=== PATIENT | male | born 1960 | race Caucasian/White ===

== ENCOUNTER 2016-11-30 15:37 | Emergency (ER) | payer MEDICARE, MEDICAID ==
[2016-11-30 16:27] LABS: EOSINOPHILS 1.4 % (0-7); HEMATOCRIT 50.6 % (42.0-54.0); HEMOGLOBIN 16.8 g/dL (13.5-17.5); IMMATURE GRANULOCYTES 0.1 % (0-5); MCH 32.4 pg (26.0-34.0); MCHC 33.2 g/dL (31.0-37.0); MCV 97.7 fL (80.0-100.0); MEAN PLATELET VOLUME 9.7 fL (7.4-10.4); MONOCYTES 8.5 % (2-11); PLATELET COUNT 206 10x3/uL (130-400); RBC 5.18 10x6/uL (4.20-6.10); RDW 13.3 % (11.5-14.5); WBC 7.2 10x3/uL (4.8-10.8)
[2016-11-30 16:42] LABS: ALBUMIN 3.9 g/dL (3.4-5.0); ALKALINE PHOSPHATASE 75 U/L (46-116); ALT (SGPT) 34 U/L (10-68); BILIRUBIN - TOTAL 0.66 mg/dL (0.2-1.3); CALC OSMOLALITY 278 mosm/kg (275-300); CALCIUM 9.1 mg/dL (8.5-10.1); CARBON DIOXIDE 24.5 mmol/L (21.0-32.0); CHLORIDE - SERUM 102 mmol/L (98-107); CREATININE - SERUM 0.8 mg/dL (0.6-1.3); GLUCOSE 108 mg/dL (74-106); POTASSIUM - SERUM 3.8 mmol/L (3.5-5.1); PROTEIN - SERUM 7.6 g/dL (6.4-8.2); SODIUM 139 mmol/L (136-145); UREA NITROGEN 13 mg/dL (7-18); eGFR NON AFRICAN AMERICAN > 90 mL/min (90-120)
[2016-11-30 18:54] LABS: APPEARANCE CLEAR (CLEAR); BILIRUBIN NEGATIVE (NEGATIVE); COLOR DK YELLOW (YELLOW); GLUCOSE NEGATIVE (NEGATIVE); KETONE SMALL mg/dL (NEGATIVE); LEUKOCYTE ESTERASE NEGATIVE (NEGATIVE); NITRITE NEGATIVE (NEGATIVE); PROTEIN NEGATIVE (NEGATIVE); UROBILINOGEN NORMAL (NORMAL)
[2016-11-30 19:03] LABS: UDS - AMPHET POSITIVE QUAL (NEGATIVE); UDS - BARB POSITIVE QUAL (NEGATIVE); UDS - BENZO POSITIVE QUAL (NEGATIVE); UDS - COCAINE NEGATIVE QUAL (NEGATIVE); UDS - METH NEGATIVE QUAL (NEGATIVE); UDS - OPIATE NEGATIVE QUAL (NEGATIVE); UDS - PCP NEGATIVE QUAL (NEGATIVE); UDS - THC NEGATIVE QUAL (NEGATIVE)
== END 2016-12-01 03:15 | disposition other institution (70) ==
LOC: D.ER 15:37
PROVIDERS: Emergency Medicine
DX: R45.851 Suicidal ideations (principal); F23 Brief psychotic disorder; F41.9 Anxiety disorder, unspecified; Z87.891 Personal history of nicotine dependence

== ENCOUNTER 2017-10-03 22:12 | Emergency (ER) | payer MEDICARE ==
[2017-10-03 22:43] LABS: BASOPHILS 1.1 % (0-2); EOSINOPHILS 1.6 % (0-7); HEMATOCRIT 48.7 % (42.0-54.0); HEMOGLOBIN 17.4 g/dL (13.5-17.5); IMMATURE GRANULOCYTES 0.1 % (0-5); LYMPHOCYTES 49.8 % (15-50); MCH 33.1 pg (26.0-34.0); MCHC 35.7 g/dL (31.0-37.0); MCV 92.6 fL (80.0-100.0); MEAN PLATELET VOLUME 9.4 fL (7.4-10.4); MONOCYTES 6.6 % (2-11); NEUTROPHILS 40.8 % (40-80); PLATELET COUNT 185 10x3/uL (130-400); RBC 5.26 10x6/uL (4.20-6.10); RDW 13.2 % (11.5-14.5)
[2017-10-03 22:54] LABS: ALBUMIN 4.1 g/dL (3.4-5.0); ANION GAP 17.2 mmol/L (8-16); BILIRUBIN - TOTAL 0.57 mg/dL (0.2-1.3); CALCIUM 8.4 mg/dL (8.5-10.1); CARBON DIOXIDE 27.6 mmol/L (21.0-32.0); CREATININE - SERUM 1.2 mg/dL (0.6-1.3); POTASSIUM - SERUM 3.8 mmol/L (3.5-5.1); PROTEIN - SERUM 7.8 g/dL (6.4-8.2)
[2017-10-03 23:36] LABS: APPEARANCE CLEAR (CLEAR); COLOR YELLOW (YELLOW); SPECIFIC GRAVITY 1.015 (1.005-1.020)
[2017-10-03 23:37] LABS: BILIRUBIN NEGATIVE (NEGATIVE); GLUCOSE NEGATIVE (NEGATIVE); KETONE NEGATIVE (NEGATIVE); NITRITE NEGATIVE (NEGATIVE); PROTEIN NEGATIVE (NEGATIVE); UROBILINOGEN NORMAL (NORMAL)
[2017-10-03 23:47] LABS: UDS - AMPHET NEGATIVE QUAL (NEGATIVE); UDS - BARB NEGATIVE QUAL (NEGATIVE); UDS - BENZO NEGATIVE QUAL (NEGATIVE); UDS - COCAINE NEGATIVE QUAL (NEGATIVE); UDS - OPIATE NEGATIVE QUAL (NEGATIVE); UDS - PCP NEGATIVE QUAL (NEGATIVE); UDS - THC NEGATIVE QUAL (NEGATIVE)
== END 2017-10-04 12:14 ==
LOC: D.ER 22:12
PROVIDERS: Emergency Medicine
DX: F32.9 Major depressive disorder, single episode, unspecified (principal); F10.10 Alcohol abuse, uncomplicated; R45.851 Suicidal ideations; F17.200 Nicotine dependence, unspecified, uncomplicated

== ENCOUNTER 2018-03-11 20:31 | Emergency (ER) | payer MEDICARE ==
[~2018-03-11] VITALS: Ht 190.5 cm; Wt 109.1 kg
[2018-03-11 20:42] VITALS: BP 113/79; Ht 190.5 cm; Wt 109.1 kg
[2018-03-11] MEDS ORDERED: KLONOPIN1 MG PO (20:44)
[2018-03-11] MEDS ORDERED: NEURONTIN600 MG PO (20:44)
[2018-03-11] MEDS ORDERED: SEROQUEL400 MG PO (20:44)
[2018-03-11 21:02] LABS: APPEARANCE CLEAR (CLEAR); BILIRUBIN NEGATIVE (NEGATIVE); COLOR YELLOW (YELLOW); GLUCOSE NEGATIVE (NEGATIVE); KETONE NEGATIVE (NEGATIVE); NITRITE NEGATIVE (NEGATIVE); PROTEIN NEGATIVE (NEGATIVE); SPECIFIC GRAVITY 1.015 (1.005-1.020); UROBILINOGEN NORMAL (NORMAL)
== END 2018-03-11 22:03 | disposition left against medical advice (07) ==
LOC: D.ER 20:31
PROVIDERS: Emergency Medicine
DX: R10.9 Unspecified abdominal pain (principal); R11.0 Nausea

== ENCOUNTER 2018-06-14 15:11 | Emergency (ER) | payer MEDICARE ==
[~2018-06-14 15:11] MED LIST: KLONOPIN1 MG PO; NEURONTIN600 MG PO; SEROQUEL400 MG PO
== END 2018-06-14 15:50 | disposition left against medical advice (07) ==
LOC: D.ER 15:11
DX: K85.90 Acute pancreatitis without necrosis or infection, unspecified (principal)

== ENCOUNTER 2019-07-05 17:03 | Inpatient (IN) | payer MEDICARE ==
[~2019-07-05] VITALS: Ht 190.5 cm; Wt 90.9 kg
[2019-07-05 00:30] VITALS: BP 114/75
--- NOTE | 2019-07-05 17:21 | NUR ---
FSBS= 119 MG/DL
[2019-07-05 17:39] VITALS: BP 125/88
[2019-07-05 17:55] LABS: BASOPHILS 0.6 % (0-2); EOSINOPHILS 2.6 % (0-7); HEMOGLOBIN 17.4 g/dL (13.5-17.5); IMMATURE GRANULOCYTES 0.2 % (0-5); LYMPHOCYTES 39.3 % (15-50); MCH 34.5 pg (26.0-34.0); MCHC 36.3 g/dL (31.0-37.0); MEAN PLATELET VOLUME 10.2 fL (7.4-10.4); MONOCYTES 10.9 % (2-11); NEUTROPHILS 46.4 % (40-80); PLATELET COUNT 174 10x3/uL (130-400); RBC 5.05 10x6/uL (4.20-6.10); RDW 12.7 % (11.5-14.5); WBC 5.1 10x3/uL (4.8-10.8)
[2019-07-05 18:08] LABS: INR 1.05 (0.85-1.17); PROTIME 13.6 SECONDS (11.6-15.0)
[2019-07-05 18:09] LABS: APTT 30.2 SECONDS (22.8-39.4)
--- NOTE | 2019-07-05 18:17 | NUR ---
PT STATES LAST ETOH INTAKE NOON VODKA AND OJ, "2 GLASSES" AND DRANK ETOH ALL NIGHT IN [place], VODKA AND OJ. PT LAST TOOK METH 0300 THIS AM.
[2019-07-05 18:20] VITALS: BP 103/75
--- NOTE | 2019-07-05 18:20 | NUR ---
NITRO NOT GIVEN D/T BP 103/75.
[2019-07-05 18:41] LABS: ALBUMIN 3.7 g/dL (3.4-5.0); ALKALINE PHOSPHATASE 67 U/L (46-116); ALT (SGPT) 113 U/L (10-68); BILIRUBIN - TOTAL 1.26 mg/dL (0.2-1.3); CARBON DIOXIDE 23.5 mmol/L (21.0-32.0); CHLORIDE - SERUM 100 mmol/L (98-107); CKMB 0.3 U/L (0.0-3.6); CREATINE KINASE 140 UL (21-232); MAGNESIUM - SERUM 1.9 mg/dL (1.8-2.4); PROTEIN - SERUM 7.9 g/dL (6.4-8.2); SODIUM 137 mmol/L (136-145); UREA NITROGEN 7 mg/dL (7-18)
[2019-07-05 18:48] LABS: CALC OSMOLALITY 272 mosm/kg (275-300); CALCIUM 9.5 mg/dL (8.5-10.1); CREATININE - SERUM 0.7 mg/dL (0.6-1.3); GLUCOSE 125 mg/dL (74-106); TROPONIN-I < 0.017 ng/mL (0.000-0.060); eGFR NON AFRICAN AMERICAN > 90 mL/min (90-120)
--- NOTE | 2019-07-05 21:18 | NUR ---
CORRECTION: PT REPORT CALLED TO [facility] AND TRANSPORTED VIA [facility].
[2019-07-05] MEDS ORDERED: INDERAL 40 MG T40 MG PO (22:09)
[2019-07-05 22:38] VITALS: BP 137/85; BMI 25.0
--- NOTE | 2019-07-06 02:35 | NUR ---
PATIENT RESTING COMFORTABLY. RESPIRATIONS ARE EVEN AND UNLABORED. NO S/S OF DISTRESS. CALL LIGHT WITHIN REACH
[2019-07-06 06:36] LABS: EOSINOPHILS 4.1 % (0-7); HEMATOCRIT 45.2 % (42.0-54.0); LYMPHOCYTES 39.8 % (15-50); MCH 34.1 pg (26.0-34.0); MCHC 35.4 g/dL (31.0-37.0); MCV 96.4 fL (80.0-100.0); MEAN PLATELET VOLUME 9.7 fL (7.4-10.4); MONOCYTES 11.9 % (2-11); NEUTROPHILS 43.2 % (40-80); PLATELET COUNT 145 10x3/uL (130-400); RBC 4.69 10x6/uL (4.20-6.10); RDW 12.9 % (11.5-14.5); WBC 5.1 10x3/uL (4.8-10.8)
[2019-07-06 07:00] LABS: CALC OSMOLALITY 275 mosm/kg (275-300); CALCIUM 8.9 mg/dL (8.5-10.1); CHLORIDE - SERUM 102 mmol/L (98-107); CREATININE - SERUM 0.8 mg/dL (0.6-1.3); GLUCOSE 113 mg/dL (74-106); MAGNESIUM - SERUM 1.8 mg/dL (1.8-2.4); PHOSPHOROUS 4.2 mg/dL (2.5-4.9); POTASSIUM - SERUM 3.8 mmol/L (3.5-5.1); SODIUM 138 mmol/L (136-145); TROPONIN-I < 0.017 ng/mL (0.000-0.060); eGFR NON AFRICAN AMERICAN > 90 mL/min (90-120)
[2019-07-06 07:12] LABS: UREA NITROGEN 9 mg/dL (7-18)
[2019-07-06 08:27] VITALS: BP 135/82
[2019-07-06 11:11] VITALS: BP 119/83
[2019-07-06 15:06] VITALS: BP 117/73
[2019-07-06 17:47] VITALS: Ht 190.5 cm; Wt 90.9 kg
--- NOTE | 2019-07-06 19:40 | NUR ---
RECEIVED BEDSIDE REPORT. PATIENT IS ALERT AND ORIENTED, RESTING COMFORTABLY IN BED. RESPIRATIONS ARE EVEN AND UNLABORED. NO S/S OF DISTRESS. NO C/O PAIN. CALL LIGHT WITHIN REACH.
[2019-07-06 20:30] VITALS: BP 101/72
[2019-07-07] VITALS: BP 97/65
--- NOTE | 2019-07-07 01:42 | NUR ---
PATIENT RESTING COMFORTABLY IN BED. RESPIRATIONS ARE EVEN AND UNLABORED. NO S/S OF DISTRESS. NO C/O PAIN. CALL LIGHT WITHIN REACH WILL CPOC.
[2019-07-07 04:30] VITALS: BP 90/62
[2019-07-07 08:48] VITALS: BP 103/68
[2019-07-07 12:26] VITALS: BP 113/73
--- NOTE | 2019-07-07 14:15 | NUR ---
IV AND TELEMETRY DCD. DC PLANS GIVEN. UNDETSTANDING VOICED.
--- NOTE | 2019-07-07 15:33 | MORECARE ---
CASE MANAGEMENT DISCHARGE SUMMARY PATIENT: KENNEY GRACE UNIT: [id number] ADM DATE: 07/05/19 AGE: 59 : 60 SEX: M ROOM/BED: D.2117 AUTHOR: ANGEL MICHELLE PHYSICIAN: REFERRING PHYSICIAN: JONATHAN PIÑA MD DATE OF SERVICE: 07/07/19 Discharge Plan Patient Name: KENNEY GRACE Facility: [facility]:[place] : 1960 Planned Disposition: Home Anticipated Discharge Date: 07/07/19 Discharge Date: 07/07/2019 Expected LOS: 2 Initial Reviewer: [email or web address] Initial Review Date: 07/05/2019 Generated: 07/07/19 4:33 pm Comments DCP- Discharge Planning Updated by [email or web address]: Jose Luis Kaur on 07/07/19 2:[address] Patient Name: KENNEY GRACE Admission Status: ER Accout number: [id number] Admission Date: 07-05-2019 : 1960 Admission Diagnosis: Attending: JONATHAN PIÑA Current LOS: 2 Anticipated DC Date: 07-07-2019 Planned Disposition: Home Primary Insurance: [facility] [employer] Discharge Planning Comments: CM ATTEMPTED TO MEET WITH PT FOR INITIAL ASSESSMENT OF DISCHARGE NEEDS. PT WAS NOT IN ROOM AT APPROXIMATELY 1520 HOURS, PT HAD DISCHARGED HOME AND LEFT THE HOSPITAL. Chain Repairer: Jose Luis Kaur Patient Name: KENNEY GRACE Page [id number] at 1533 All edits/amendments must be made on the electronic document DICTATION DATE: 07/07/19 153 RESEARCH CHEMIST: RAMONA 07/07/19 1533 RPT#: [id number] DC DATE:07/07/19 STATUS: DIS IN [facility] [address] [place] [address] END OF REPORT
== END 2019-07-07 14:16 | disposition home or self-care (01) | DRG 313 ==
LOC: D.ER 17:03 → D.M2 19:13
PROVIDERS: Family Medicine; ADMIT Family Medicine; ATTEND Family Medicine
DX: R07.9 Chest pain, unspecified (principal); J44.1 Chronic obstructive pulmonary disease with (acute) exacerbation; F15.10 Other stimulant abuse, uncomplicated; F10.20 Alcohol dependence, uncomplicated; N20.0 Calculus of kidney